=== PATIENT | female | born 1970 | race African-American/Black ===

== ENCOUNTER 2016-12-06 09:29 | Emergency (ER) | payer OTHER ==
[2016-12-06 09:36] VITALS: BP 129/94; PULSE 90; TEMP 98.5; BMI 32.3
--- NOTE | 2016-12-06 10:31 | PDOC ---
History of Present Illness - General Chief Complaint: Pain Stated Complaint: LEFT SHOULDER PAIN Time Seen by Provider: 12/06/16 09:53 History Source: Patient Exam Limitations: No Limitations - History of Present Illness Initial Comments: 12/06/16 10:13 Patient is a female, history of borderline diabetes, scoliosis with Alvarado tawny at age 15, chronic left shoulder pain. Patient recently moved back to [place] from [place] states that she ran out of her muscle relaxer and is requesting refill of medicine. Patient denies any new chronic acute pain, no numbness or tingling, no shortness of breath or chest pain. Patient denies any saddle anesthesia, no neurosensory deficits, no footdrop. Allergies: No known allergies Medications: Tizanidine Family History: Non-contributory Social History: Denies smoking, alcohol use, or IVDU Review of Systems GENERAL/CONSTITUTIONAL: No fever or chills. No weakness. No weight change. HEAD, EYES, EARS, NOSE AND THROAT: No change in vision. No ear pain or discharge. No sore throat. CARDIOVASCULAR: No chest pain or shortness of breath. RESPIRATORY: No cough, wheezing, or hemoptysis. GASTROINTESTINAL: No nausea, vomiting, diarrhea or constipation. No rectal bleeding. GENITOURINARY: No dysuria, frequency, or change in urination. MUSCULOSKELETAL: Left lateral neck and shoulder pain. SKIN : No rash or easy bruising. NEUROLOGIC: No headache, vertigo, loss of consciousness, or loss of sensation. PSYCHIATRIC: No depression or anxiety. ENDOCRINE: No increased thirst. No abnormal weight change. HEMATOLOGIC/LYMPHATIC: No anemia, easy bleeding, or history of blood clots. ALLERGIC/IMMUNOLOGIC: No hives or skin allergy. No latex allergy. Physical Exam: GENERAL: The patient is awake, alert, and fully oriented, in no acute distress. HEAD: Normal with no signs of trauma. EYES: Pupils equal, round and reactive to light, extraocular movements intact, sclera anicteric, conjunctiva clear. ENT: Ears normal, nares patent, oropharynx clear without exudates. Moist mucous membranes. No uvula deviation NECK: Normal range of motion, supple without lymphadenopathy, JVD, or masses. LUNGS: Breath sounds equal, clear to auscultation bilaterally. No wheezes, and no crackles. HEART: Regular rate and rhythm, normal S1 and S2 without murmur, rub or gallop. ABDOMEN: Soft, nontender, normoactive bowel sounds. No guarding, no rebound. No masses. No bruising or abrasions RECTAL :normal rectal tone. MUSCULOSKELETAL: Normal range of motion, no edema. No clubbing or cyanosis. No cords, erythema, or tenderness. No CVA Tenderness with fist palpation. Vertical scar noted entire length of spine, no spinal point tenderness. NEUROLOGICAL: Cranial nerves II through XII grossly intact. Normal speech, normal gait. SKIN: Warm, Dry, normal turgor, no rashes or lesions noted. 12/06/16 10:39 Past History - Past Medical History Allergies/Adverse Reactions: Allergies Allergy/AdvReac Type Severity Reaction Status Date / Time pregabalin [From Lyrica] Allergy Verified 12/06/16 09:32 tramadol Allergy Verified 12/06/16 09:32 Home Medications: Ambulatory Orders Tizanidine HCl [Zanaflex] 2 mg PO Q6H PRN #24 capsule 12/06/16 HTN: Yes (border line) Other medical history: scoliosis, deering - Surgical History Abdominal Surgery: Yes (d&c) - Psycho/Social/Smoking Cessation Hx Anxiety: No Suicidal Ideation: No Smoking History: Never smoked Have you smoked in the past 12 months: No Information on smoking cessation initiated: No Hx Alcohol Use: No Drug/Substance Use Hx: No Substance Use Type: None *Physical Exam - Vital Signs Last Vital Signs Temp Pulse Resp BP Pulse Ox 98.5 F 90 18 129/94 100 12/06/16 09:32 12/06/16 09:32 12/06/16 09:32 12/06/16 09:32 12/06/16 09:32 Medical Decision Making - Medical Decision Making 12/06/16 10:41 A/P: Patient with chronic left lateral neck and shoulder pain. History of Alvarado tawny and has not recently had a assessed. An eyes any neurosensory deficits, no chest pain or shortness of breath. No saddle anesthesia. A follow-up appointment has been made for [facility] on FridayDecember 11 at 9:45 AM with . One week supply of tizanidine given to patient. I discussed the physical exam findings, ancillary test results and final diagnoses with the patient. I answered all of the patient's questions. The patient was satisfied with the care received and felt comfortable with the discharge plan and treatment plan. The patient will call to arrange follow-up and will return to the Emergency Department with any new, persistent or worsening symptoms. *DC/Admit/Observation/Transfer Diagnosis at time of Disposition: Chronic musculoskeletal pain - Discharge Dispostion Disposition: HOME Condition at time of disposition: Good Admit: No - Prescriptions Prescriptions: Tizanidine HCl [Zanaflex] 2 mg PO Q6H PRN #24 capsule PRN Reason: muscle spasm - Referrals Referrals: [facility] [Provider Group] (Appointment made on December 11Friday at 9:[address] Uribe) - Patient Instructions Printed Discharge Instructions: DI for Chronic Neck Pain Additional Instructions: An appointment has been made for you at [facility], please follow up as indicated. If any increased pain, numbness or tingling, or any other concerns return to ER
== END 2016-12-06 11:04 | disposition home or self-care (01) ==
LOC: JERFT 09:29
DX: M25.512 Pain in left shoulder (principal); G89.29 Other chronic pain; I10 Essential (primary) hypertension
CPT/HCPCS: 99281-25